=== PATIENT | male | born 1980 | race Two or more races ===

== ENCOUNTER 2023-04-05 09:45 | Inpatient (IN) | payer MEDICAID, OTHER ==
[~2023-04-05] VITALS: Ht 172.7 cm; Wt 85.0 kg
[2023-04-05 10:56] LABS: Basophils # (auto) 0 10 ^3/uL (0-0.2); Basophils % (auto) 0.2 % (0.0-2.0); Eosinophils # (auto) 0.2 10 ^3/uL (0-0.8); Eosinophils % (auto) 1.7 % (0.0-7.0); Hematocrit 46.8 % (41.0-53.0); Hemoglobin 15.9 g/dL (13.5-17.5); Lymphocytes # (auto) 2.5 10 ^3/uL (0.4-5.4); Lymphocytes % (auto) 18.8 % (10.0-50.0); Mean Corpuscular Hemoglobin 29.6 pg (28.0-32.0); Mean Corpuscular Hgb Conc. 33.9 g/dL (32.0-36.0); Mean Corpuscular Volume 87.2 fL (80.0-100.0); Monocytes % (auto) 7.6 % (0.0-12.0); Neutrophils # (auto) 9.6 10 ^3/uL (1.6-8.6); Neutrophils % (auto) 71.7 % (37.0-80.0); Red Blood Cells 5.37 10^6/uL (4.5-5.90); Red Cell Distribution Width 13.7 % (11.8-14.3); White Blood Cell 13.4 10^3/uL (4.4-10.8)
[2023-04-05 11:06] LABS: Alanine Aminotransferase 16 U/L (7-40); Albumin 4.5 g/dL (3.2-4.8); Alkaline Phosphatase 62 U/L (46-116); Anion Gap 4 (5-15); Aspartate Aminotransferase 16 U/L (13-40); BUN/Creatinine Ratio 8.9 (10.0-20.0); Bilirubin, Total 0.7 mg/dL (0.2-1.0); Blood Urea Nitrogen 8 mg/dL (9-23); Calcium 9.1 mg/dL (8.7-10.4); Carbon Dioxide 32 mmol/L (20-30); Chloride 101 mmol/L (98-107); Glucose 85 mg/dL (74-106); Lipase 29 U/L (12-53); Sodium 137 mmol/L (136-145)
[2023-04-05 11:07] LABS: Total Protein 7.4 g/dL (5.7-8.2)
[2023-04-05 11:29] LABS: Urine Bacteria NONE SEEN /hpf (None Seen); Urine Blood Negative /uL (Negative); Urine Clarity Clear (Clear); Urine Mucus FEW (None Seen); Urine Protein, UAD Negative (Negative); Urine Specific Gravity 1.014 (1.001-1.035); Urine Urobilinogen Normal (Negative); Urine WBC <1 /hpf (0 - 3)
[2023-04-05 11:30] LABS: Urine Color STRAW (Yellow)
[2023-04-05] MEDS ORDERED: cefTRIAXone 1GM/50ML D5W 50 ML IV ONE (12:45)
[2023-04-05] MEDS ORDERED: metroNIDAZOLE 500MG/100ML 100 ML IV ONE (12:45)
[2023-04-05] MEDS ORDERED: ACETAMINOPHEN 325 MG TAB PO PRN (13:15)
[2023-04-05] MEDS ORDERED: NITROGLYCERIN 0.4 MG SL TAB SL PRN (13:15)
[2023-04-05] MEDS ORDERED: ONDANSETRON HCL 4 MG/2 ML VIAL IV PRN (13:15)
[2023-04-05] MEDS ORDERED: HYDROcodone-ACET 5/325MG TAB PO PRN (13:15)
[2023-04-05] MEDS ORDERED: MORPHINE SULFATE INJ 2 MG/ml SYRG IV PRN ×2 (13:15)
[2023-04-05 13:37] VITALS: PULSE 89; RESP 16; O2SAT 98
[2023-04-05 13:50] LABS: Free T4 (Free Thyroxine) 0.93 ng/dL (0.89-1.76)
[2023-04-05 15:11] LABS: Lactic Acid w/Reflex 2.1 mmol/L (0.4-2.0)
[2023-04-05] MEDS ORDERED: CYANOCOBALAMIN (B-12) 1000 MCG/1 ML VIAL IM ONE (15:15)
[2023-04-05] MEDS ORDERED: ERGOCALCIFEROL 50,000 UNIT(1.25MG) CAP PO SCH (15:15)
[2023-04-05] MEDS: SODIUM CHLORIDE 0.9% 1,000 ML IV SCH (15:29)
[2023-04-05 18:47] VITALS: BP 120/77; PULSE 88; TEMP 98.8; O2SAT 98
[2023-04-05] MEDS ORDERED: POLYETHYLENE GLYCOL 17 GM PWDR PO ONE (19:30)
[2023-04-05] MEDS: PANTOPRAZOLE 40 MG/10 ML VIAL INJ IV SCH (21:41)
[2023-04-05 22:26] VITALS: BP 107/72; PULSE 85; RESP 18; TEMP 98.9; O2SAT 97
[2023-04-06] VITALS (7 sets, daily range): BP systolic 104–122; BP diastolic 70–83; PULSE 70–89; RESP 18; TEMP 36.8; O2SAT 95–100
[2023-04-06 05:19] LABS: Basophils # (auto) 0 10 ^3/uL (0-0.2); Basophils % (auto) 0.2 % (0.0-2.0); Eosinophils # (auto) 0.2 10 ^3/uL (0-0.8); Eosinophils % (auto) 1.9 % (0.0-7.0); Hematocrit 42.8 % (41.0-53.0); Hemoglobin 14.5 g/dL (13.5-17.5); Lymphocytes # (auto) 2.8 10 ^3/uL (0.4-5.4); Lymphocytes % (auto) 24.3 % (10.0-50.0); Mean Corpuscular Hemoglobin 29.5 pg (28.0-32.0); Mean Corpuscular Hgb Conc. 33.9 g/dL (32.0-36.0); Mean Corpuscular Volume 86.8 fL (80.0-100.0); Monocytes # (auto) 0.7 10 ^3/uL (0-1.3); Monocytes % (auto) 6.5 % (0.0-12.0); Neutrophils # (auto) 7.7 10 ^3/uL (1.6-8.6); Neutrophils % (auto) 67.1 % (37.0-80.0); Red Blood Cells 4.94 10^6/uL (4.5-5.90); Red Cell Distribution Width 13.9 % (11.8-14.3); White Blood Cell 11.5 10^3/uL (4.4-10.8)
[2023-04-06] MEDS: SODIUM CHLORIDE 0.9% 1,000 ML IV SCH ×3 (05:41→21:15)
[2023-04-06 05:43] LABS: Alanine Aminotransferase 12 U/L (7-40); Albumin 4.4 g/dL (3.2-4.8); Alkaline Phosphatase 52 U/L (46-116); Anion Gap 4 (5-15); Aspartate Aminotransferase 15 U/L (13-40); BUN/Creatinine Ratio 6.4 (10.0-20.0); Blood Urea Nitrogen 6 mg/dL (9-23); Calcium 9.1 mg/dL (8.7-10.4); Carbon Dioxide 30 mmol/L (20-30); Chloride 104 mmol/L (98-107); Glucose 90 mg/dL (74-106); Sodium 138 mmol/L (136-145)
[2023-04-06 05:44] LABS: Bilirubin, Total 1.1 mg/dL (0.2-1.0); Total Protein 6.9 g/dL (5.7-8.2)
[2023-04-06] MEDS: levoFLOXacin 750MG 150 ML IV SCH (09:56)
[2023-04-06] MEDS: PANTOPRAZOLE 40 MG/10 ML VIAL INJ IV SCH ×2 (10:02→21:06)
[2023-04-06] MEDS: CYANOCOBALAMIN 500 MCG TAB PO SCH (10:02)
[2023-04-06] MEDS: metroNIDAZOLE 500MG/100ML 100 ML IV SCH ×2 (15:01→20:51)
[2023-04-07 05:00] VITALS: BP 103/65; PULSE 78; RESP 19; TEMP 98.2; O2SAT 100
[2023-04-07 05:54] LABS: Basophils # (auto) 0 10 ^3/uL (0-0.2); Basophils % (auto) 0.3 % (0.0-2.0); Eosinophils # (auto) 0.2 10 ^3/uL (0-0.8); Eosinophils % (auto) 2.1 % (0.0-7.0); Hematocrit 43.6 % (41.0-53.0); Hemoglobin 14.8 g/dL (13.5-17.5); Lymphocytes # (auto) 2.6 10 ^3/uL (0.4-5.4); Lymphocytes % (auto) 27.5 % (10.0-50.0); Mean Corpuscular Hemoglobin 29.6 pg (28.0-32.0); Mean Corpuscular Hgb Conc. 33.9 g/dL (32.0-36.0); Mean Corpuscular Volume 87.2 fL (80.0-100.0); Monocytes # (auto) 0.7 10 ^3/uL (0-1.3); Monocytes % (auto) 7.2 % (0.0-12.0); Neutrophils % (auto) 62.9 % (37.0-80.0); Nucleated Red Blood Cells % 0.1 %; Red Cell Distribution Width 13.7 % (11.8-14.3); White Blood Cell 9.5 10^3/uL (4.4-10.8)
[2023-04-07] MEDS: metroNIDAZOLE 500MG/100ML 100 ML IV SCH ×2 (05:55→06:02)
[2023-04-07 06:01] LABS: Alanine Aminotransferase 12 U/L (7-40); Alkaline Phosphatase 49 U/L (46-116); Anion Gap 10 (5-15); Aspartate Aminotransferase 13 U/L (13-40); BUN/Creatinine Ratio 8.9 (10.0-20.0); Blood Urea Nitrogen 8 mg/dL (9-23); Calcium 9.1 mg/dL (8.7-10.4); Carbon Dioxide 22 mmol/L (20-30); Chloride 105 mmol/L (98-107); Glucose 79 mg/dL (74-106); Sodium 137 mmol/L (136-145)
[2023-04-07 06:02] LABS: Bilirubin, Total 0.9 mg/dL (0.2-1.0)
[2023-04-07 06:03] LABS: Albumin 4.4 g/dL (3.2-4.8)
[2023-04-07] MEDS: SODIUM CHLORIDE 0.9% 1,000 ML IV SCH ×2 (07:15→17:15)
[2023-04-07] MEDS ORDERED: POLYETHYLENE GLYCOL 17 GM PWDR PO PRN (07:45)
[2023-04-07 08:00] VITALS: BP 105/69; PULSE 62; RESP 16; TEMP 98.4; O2SAT 100
[2023-04-07] MEDS: CYANOCOBALAMIN 500 MCG TAB PO SCH (10:53)
[2023-04-07] MEDS: PANTOPRAZOLE 40 MG/10 ML VIAL INJ IV SCH (10:53)
[2023-04-07] MEDS: levoFLOXacin 750MG 150 ML IV SCH (10:53)
[2023-04-07] MEDS ORDERED: CYAN500T3 PO (12:43)
[2023-04-07] MEDS ORDERED: METR-344 PO (12:43)
[2023-04-07] MEDS ORDERED: LEVO500T91 PO (12:43)
[2023-04-07] MEDS ORDERED: ERGO1CAP23 PO (12:43)
[2023-04-07 13:00] VITALS: BP 108/67; PULSE 71; RESP 16; TEMP 98.4; O2SAT 16
[2023-04-07] MEDS ORDERED: metroNIDAZOLE 500MG/100ML 100 ML IV SCH (14:00)
[2023-04-07 15:37] VITALS: BP 145/90; PULSE 62; RESP 16; TEMP 36.9; O2SAT 100
[2023-04-08 10:24] LABS: Hepatitis B Surface Antibody Positive (Negative)
[2023-04-08 10:36] LABS: Hepatitis B Surface Antigen Negative (Negative)
[2023-04-08 10:57] LABS: Hepatitis C Antibody Negative (Negative)
== END 2023-04-07 17:35 | disposition home or self-care (01) | DRG 244 ==
LOC: EDBD 09:45 → ER 09:45 → OVERFLOW 13:14 → UNDOADMIN 13:14 → WEST WING 17:39 → OVERFLOW 17:39 → WEST WING 19:44 → OVERFLOW 19:44
PROVIDERS: ADMIT Internal Medicine; ATTEND Internal Medicine
DX: K57.32 Diverticulitis of large intestine without perforation or abscess without bleeding (principal); D72.829 Elevated white blood cell count, unspecified; E53.8 Deficiency of other specified B group vitamins; E55.9 Vitamin D deficiency, unspecified; Z83.3 Family history of diabetes mellitus; Z87.891 Personal history of nicotine dependence; Z88.0 Allergy status to penicillin
CPT/HCPCS: 36415; 74176; 76705; 80053; 81001; 82248; 82270; 82306; 82607; 83605; 83690; 84439; 84443; 85025; 86706; 86803; 87040; 87340; C9113; G0378; J1956; J3490